=== PATIENT | female | born 1990 | race African-American/Black ===

== ENCOUNTER 2020-01-17 11:10 | Outpatient (REF) | payer OTHER, SELFPAY ==
[2020-01-17 13:27] LABS: CT PCR NOT DETECTED (Not Detect.); NG PCR NOT DETECTED (Not Detect.)
[2020-01-18 08:47] LABS: BV Int Neg Control Negative (Negative); BV Int Pos Control Positive (Positive)
== END 2020-01-17 11:11 | disposition home or self-care (01) ==
LOC: HO.LNP 11:10
PROVIDERS: Visit Provider Nurse Practitioner Family
DX: Z11.3 Encounter for screening for infections with a predominantly sexual mode of transmission (principal); R30.9 Painful micturition, unspecified
CPT/HCPCS: 87480; 87491; 87510; 87591; 87660

== ENCOUNTER 2021-07-29 21:01 | Emergency (ER) | payer OTHER, SELFPAY ==
--- NOTE | ~2021-07-29 | XR_ITS ---
EXAMINATION: XR HAND, RIGHT CLINICAL INFORMATION: Pain COMPARISON: 12/31/2007 TECHNIQUE: PA, lateral, and oblique views of the right hand. FINDINGS: There is a headless screw within the fifth metacarpal. Hardware is intact. There is no fracture or dislocation. Joint spaces are maintained. Alignment maintained. The soft tissues are unremarkable. XR/XR hand RT 2V IMPRESSION: No acute abnormality or significant arthritic changes. Fixation hardware in the fifth metacarpal is intact.
[2021-07-29 23:44] VITALS: BP 128/83; PULSE 80; RESP 14; TEMP 36.9; O2SAT 98; BMI 24.0
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
== END 2021-07-30 01:30 | disposition home or self-care (01) ==
LOC: HO.ED 07-30 01:32
PROVIDERS: Emergency Provider Student in an Organized Health Care Education/Training Program
DX: M79.641 Pain in right hand (principal)
CPT/HCPCS: 29125; 73120; 99282; 99283

== ENCOUNTER 2022-04-30 18:10 | Emergency (ER) | payer OTHER, SELFPAY ==
--- NOTE | ~2022-04-30 | CT_ITS ---
EXAMINATION: CT ABDOMEN AND PELVIS WITHOUT CONTRAST CLINICAL INFORMATION: Nausea vomiting and diarrhea. Abdominal pain. COMPARISON: CT abdomen pelvis 09/24/2012 TECHNIQUE: Multidetector volumetric imaging was performed from the superior aspect of the liver through the pubic symphysis. Sagittal and coronal reformatted images were obtained on the technologist's workstation. This CT examination was performed using dose optimization techniques as appropriate, variously including the following: *Automated exposure control *Adjustment of mA and/or kV according to patient size (this includes techniques or standardized protocols for targeted exams where dose is matched to indication/reason for exam; i.e. extremities or head) *Use of iterative reconstruction technique DLP: 520 mGy-cm FINDINGS: LUNG BASES: Lung bases normally aerated. No pleural effusion. LIVER, GALLBLADDER, AND BILIARY TREE: The liver is normal in size, shape, and attenuation. No focal hepatic lesion or biliary ductal dilatation is present. The gallbladder is unremarkable with no evidence of radiopaque gallstones, gallbladder wall thickening, or obvious pericholecystic inflammatory changes. PANCREAS: Unremarkable. SPLEEN: Unremarkable. ADRENAL GLANDS: Unremarkable. KIDNEYS AND URETERS: The kidneys are normal in size, shape, and attenuation. No hydronephrosis, hydroureter, or calculi seen. No perinephric stranding. BLADDER: Unremarkable. GASTROINTESTINAL TRACT: The small and large bowel are unremarkable. The appendix is unremarkable. ABDOMINAL WALL: No significant hernia is appreciated. LYMPH NODES: Normal. VASCULAR: Unremarkable. PELVIC VISCERA: Unremarkable. OSSEOUS STRUCTURES: Unremarkable. CT/CT abdomen pelvis wo IV con IMPRESSION: No significant abnormality. Fleischner guidelines were followed.
[2022-04-30 18:38] VITALS: BP 115/86; PULSE 64; RESP 18; TEMP 36.9; O2SAT 100; BMI 27.5
--- NOTE | 2022-04-30 18:38 | ED.ABDPAIN ---
HPI - Abdominal Pain General Chief Complaint: Nausea/Vomiting/Diarrhea <MARIA DE JESUS Lewis - Last Filed: 04/30/22 18:42> Stated Complaint: vomit, abd pain <MARIA DE JESUS Lewis - Last Filed: 04/30/22 18:42> Time Seen by Provider: 04/30/22 21:41 <MARIA DE JESUS Lewis - Last Filed: 04/30/22 18:42> Source: patient and RN notes reviewed <Lei Wang - Last Filed: 04/30/22 23:13> Mode of arrival: ambulatory <Lei Wang - Last Filed: 04/30/22 23:13> Limitations: no limitations <Lei Wang - Last Filed: 04/30/22 23:13> History of Present Illness HPI narrative: 31-year-old female with past medical history significant for depression presents for evaluation of nausea, vomiting. Patient reports that she woke up this morning with generalized diffuse abdominal pain is moderate, 5/10. She reports that she has been vomiting all throughout the day. She denies any fevers, chills. The patient did have 2 episodes of nonbloody diarrhea The patient does endorse sick contacts as her family at home had influenza about 1 week ago The patient denies any history of abdominal surgeries <Lei Wang - Last Filed: 04/30/22 23:13> Related Data Home Medications: Home Medications Medication Instructions Recorded Confirmed escitalopram oxalate 10 mg tablet 10 mg PO DAILY 01/17/20 famotidine 20 mg tablet 20 mg PO BEDTIME PRN 01/17/20 hydroxyzine HCl 25 mg tablet 25 mg PO TID 01/17/20 loperamide 2 mg capsule mg PO 01/17/20 Previous Rx's Medication Instructions Recorded fluconazole 150 mg tablet 150 mg PO Q3D 2 doses #2 tabs 01/17/20 (Diflucan) montelukast 10 mg tablet 10 mg PO DAILY 90 days #90 tabs 11/20/20 ondansetron 4 mg disintegrating 4 mg PO Q8H PRN nausea and 04/30/22 tablet vomiting #20 tabs <MARIA DE JESUS Lewis Last Filed: 04/30/22 18:42> Allergies/Adverse Reactions: Allergies Allergy/AdvReac Type Severity Reaction Status Date / Time No Known Allergies Allergy Mild UNKNOWN Verified 04/30/22 18:38 <MARIA DE JESUS Lewis - Last Filed: 04/30/22 18:42> Review of Systems Constitutional: Reports as per HPI, Denies chills and Denies fatigue <Lei Wang - Last Filed: 04/30/22 23:13> Cardiovascular: Denies chest pain and Denies dyspnea <Lei Wang - Last Filed: 04/30/22 23:13> Respiratory: Denies cough and Denies dyspnea <Lei Wang - Last Filed: 04/30/22 23:13> Gastrointestinal: Reports abdominal pain, Denies melena, Denies hematochezia, Denies constipation, Reports diarrhea, Reports nausea and Reports vomiting <Lei Wang - Last Filed: 04/30/22 23:13> Genitourinary: Denies dysuria <Lei Wang - Last Filed: 04/30/22 23:13> Endocrine: Denies fatigue <Lei Wang - Last Filed: 04/30/22 23:13> [facility] Social History Social History: Social History Advance Directives: No Advance Directives Information Provided: No <MARIA DE JESUS Lewis - Last Filed: 04/30/22 18:42> Physical Exam ED Vital Signs: Vital Signs - 24 hr 04/30/22 18:38 04/30/22 21:34 Temperature 98.4 F 97.9 F Pulse Rate 64 45 L Respiratory Rate 18 16 Blood Pressure 115/86 108/36 L Pulse Oximetry 100 99 Oxygen Delivery Method Room Air Room Air BMI result Body Mass Index 27.5 <MARIA DE JESUS Lewis - Last Filed: 04/30/22 18:42> Vital Signs - 24 hr 04/30/22 18:38 04/30/22 21:34 Temperature 98.4 F 97.9 F Pulse Rate 64 45 L Respiratory Rate 18 16 Blood Pressure 115/86 108/36 L Pulse Oximetry 100 99 Oxygen Delivery Method Room Air Room Air BMI result Body Mass Index 27.5 <Lei Wang - Last Filed: 04/30/22 23:13> Const General: healthy appearing, comfortable, no acute distress, alert and awake <Lei OSanty - Last Filed: 04/30/22 23:13> Nutritional Appearance: well nourished <Lei O[place]mouth - Last Filed: 04/30/22 23:13> Orientation/consciousness: patient oriented x3 <Lei O - Last Filed: 04/30/22 23:13> Eyes Eyelids: Yes eyelids normal <Lei - Last Filed: 04/30/22 23:13> Conjunctivae: conjunctivae normal < - Last Filed: 04/30/22 23:13> Sclerae: sclerae normal < - Last Filed: 04/30/22 23:13> Corneas: corneas normal < - Last Filed: 04/30/22 23:13> Pupils: Equal, round and reactive pupils present <Lei O - Last Filed: 04/30/22 23:13> EOM: EOMs intact bilaterally < - Last Filed: 04/30/22 23:13> Resp Effort & Inspection: normal respiratory effort, able to speak in complete sentences, no audible wheezes and not labored <Lei - Last Filed: 04/30/22 23:13> Auscultation: clear to auscultation bilaterally <Lei - Last Filed: 04/30/22 23:13> GI Inspection: Yes normal to inspection and No distended <Lei O - Last Filed: 04/30/22 23:13> Palpation (GI): Soft to palpation and nontender <Lei - Last Filed: 04/30/22 23:13> Auscultation: normoactive bowel sounds <Lei - Last Filed: 04/30/22 23:13> Skin General skin exam: no rashes or lesions noted and elasticity normal <Lei - Last Filed: 04/30/22 23:13> Lesions: no lesions <Lei O - Last Filed: 04/30/22 23:13> Rashes: no rashes <Lei Indiray - Last Filed: 04/30/22 23:13> Neuro General: patient oriented x3 <Lei Wang - Last Filed: 04/30/22 23:13> Cranial nerves: Yes Equal, round and reactive pupils present <Lei Wang - Last Filed: 04/30/22 23:13> Extrem General: Yes full ROM <Lei Wang - Last Filed: 04/30/22 23:13> Course Course Course Narrative: RME-18:40PM 31yoF presenting to the ED with complaints of nausea, vomiting, diffuse abd pain, diarrhea that started today. Patient reports she feels very dehydrated. She has had minimal urine output today. 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 Although no sick contacts that she is aware of. Denies any fevers, chest pain or shortness of breath, constipation or any other symptoms complaints or concerns at this time. Plan: Will obtain labs, UA, UHCG, COVID/RSV/flu swab and a CT scan abdomen pelvis without IV contrast patient will be sent back to the waiting room to be evaluated in the ED. <MARIA DE JESUS Lewis - Last Filed: 04/30/22 18:42> Medical Decision Making Medical Decision Making MDM Narrative: This is a healthy 31-year-old female presenting for evaluation of vomiting, diarrhea. She is actually slightly bradycardic to 52 in my evaluation. She is asymptomatic from this without any dizziness or lightheadedness. She has a regular rhythm on playground monitor. Denies any chest pains or palpitations. This is not appear to be an acute issue. Her labs are significant for a fully elevated BUN to 22. A current of 1.36. Is likely due to her vomiting and diarrhea. Fluids with IV fluids, Zofran. The patient has no tenderness to palpation of the abdomen, and the abdomen is soft nondistended. Hello suspicion for acute appendicitis that she has no right upper quadrant tenderness. She had a CT scan which also refuse this diagnosis. The CT scan did not show any acute abnormalities. The patient likely has a viral gastroenteritis. <Lei Kathleen - Last Filed: 04/30/22 23:13> Differential Diagnosis Acute nausea and vomiting, gastroenteritis, small bowel obstruction, acute appendicitis, cholecystitis, peptic ulcer disease, electrolyte abnormality, viral syndrome <Lei Wang - Last Filed: 04/30/22 23:13> Lab Data Result Diagrams: 04/30/22 19:14 04/30/22 19:14 <MARIA DE JESUS Lewis - Last Filed: 04/30/22 18:42> Labs: Lab Results 04/30/22 04/30/22 04/30/22 Range/Units 19:14 19:14 19:14 WBC 9.4 (4.8-10.8) X10*3/uL RBC 4.10 L (4.20-5.50) X10*6/uL Hgb 13.2 (12.0-16.0) g/dl Hct 39.1 (37.0-47.0) % MCV 95.4 (80.0-98.0) fL MCH 32.2 (27.0-33.0) pg MCHC 33.8 (31.0-35.0) g/dl RDW 11.4 (11.0-16.0) % Plt Count 387 (160-400) X10*3/uL MPV 9.6 (9.4-12.3) fL Immature Gran % (Auto) 0.2 (0.0-0.4) % Neut % (Auto) 70.4 (45-73) % Lymph % (Auto) 19.8 L (20-40) % [place] % (Auto) 8.8 (2-11) % Eos % (Auto) 0.4 (0-4) % Baso % (Auto) 0.4 (0-2) % Lymph # (Auto) 1.9 (1.2-4.9) X10*3/uL [place] # (Auto) 0.8 (0.1-1.2) X10*3/uL Eos # (Auto) 0.0 (0.0-0.4) X10*3/uL Baso # (Auto) 0.0 (0.0-0.2) X10*3/uL Abs Immat Gran (auto) 0.02 (0.00-0.03) X10*3/uL Absolute Neuts (auto) 6.6 (2.0-8.3) x10*3/uL Absolute Nucleated RBC 0.000 (0.0-0.012) X10*3/uL Nucleated RBC % (auto) 0.0 (0.0-0.2) /100WBC PT 12.5 (10.0-13.1) SEC INR 1.1 (0.9-1.1) Sodium 143 (135-145) mmol/L Potassium 4.3 (3.3-5.1) mmol/L Chloride 108 (96-108) mmol/L Carbon Dioxide 27 (22-29) mmol/L Anion Gap 12 (12-20) BUN 22 H (9-16) mg/dL Creatinine 1.36 (0.5-1.4) mg/dL Estim Creat Clear Calc 57.5 Estimated GFR 45 Random Glucose 93 (60-115) mg/dL Calcium 9.5 (8.4-10.2) mg/dL Magnesium 2.3 (1.6-2.6) mg/dL Total Bilirubin 0.9 (0.0-1.0) mg/dL AST 20 (5-31) U/L ALT 9 (0-31) U/L Alkaline Phosphatase 68 (39-117) U/L Total Protein 7.3 (6.5-8.0) g/dL Albumin 4.4 (3.5-5.0) g/dL Lipase 11 (8-78) U/L Beta HCG, Quant mIU/mL Urine Color Urine Appearance Urine pH (5.0-9.0) Ur Specific [place] (1.005-1.025) Urine Protein (Neg-Trace) mg/dL Urine Glucose (UA) (Negative) mg/dL Urine Ketones (Negative) mg/dL Urine Blood (Negative) Urine Nitrite (Negative) Ur Leukocyte Esterase (Negative) Urine RBC (0-2) /HPF Urine WBC (0-5) /HPF Ur Squamous Epith Cells (0-2) /HPF Urine Bacteria (None Seen) Hyaline Casts (0-2) /LPF Influenza Type A (PCR) (Negative) Influenza Type B (PCR) (Negative) RSV RNA Qual (PCR) (Negative) SARS-CoV-2 RNA (RT-PCR) (Negative) 04/30/22 04/30/22 04/30/22 Range/Units 19:14 19:14 21:47 WBC (4.8-10.8) X10*3/uL RBC (4.20-5.50) X10*6/uL Hgb (12.0-16.0) g/dl Hct (37.0-47.0) % MCV (80.0-98.0) fL MCH (27.0-33.0) pg MCHC (31.0-35.0) g/dl RDW (11.0-16.0) % Plt Count (160-400) X10*3/uL MPV (9.4-12.3) fL Immature Gran % (Auto) (0.0-0.4) % Neut % (Auto) (45-73) % Lymph % (Auto) (20-40) % [place] % (Auto) (2-11) % Eos % (Auto) (0-4) % Baso % (Auto) (0-2) % Lymph # (Auto) (1.2-4.9) X10*3/uL [place] # (Auto) (0.1-1.2) X10*3/uL Eos # (Auto) (0.0-0.4) X10*3/uL Baso # (Auto) (0.0-0.2) X10*3/uL Abs Immat Gran (auto) (0.00-0.03) X10*3/uL Absolute Neuts (auto) (2.0-8.3) x10*3/uL Absolute Nucleated RBC (0.0-0.012) X10*3/uL Nucleated RBC % (auto) (0.0-0.2) /100WBC PT (10.0-13.1) SEC INR (0.9-1.1) Sodium (135-145) mmol/L Potassium (3.3-5.1) mmol/L Chloride (96-108) mmol/L Carbon Dioxide (22-29) mmol/L Anion Gap (12-20) BUN (9-16) mg/dL Creatinine (0.5-1.4) mg/dL Estim Creat Clear Calc Estimated GFR Random Glucose (60-115) mg/dL Calcium (8.4-10.2) mg/dL Magnesium (1.6-2.6) mg/dL Total Bilirubin (0.0-1.0) mg/dL AST (5-31) U/L ALT (0-31) U/L Alkaline Phosphatase (39-117) U/L Total Protein (6.5-8.0) g/dL Albumin (3.5-5.0) g/dL Lipase (8-78) U/L Beta HCG, Quant < 2 mIU/mL Urine Color Yellow Urine Appearance Clear Urine pH 5.5 (5.0-9.0) Ur Specific [place] 1.010 (1.005-1.025) Urine Protein Trace (Neg-Trace) mg/dL Urine Glucose (UA) Negative (Negative) mg/dL Urine Ketones Negative (Negative) mg/dL Urine Blood Negative (Negative) Urine Nitrite Negative (Negative) Ur Leukocyte Esterase Trace H (Negative) Urine RBC 0-2 (0-2) /HPF Urine WBC 0-5 (0-5) /HPF Ur Squamous Epith Cells 3-5 (0-2) /HPF Urine Bacteria Trace (None Seen) Hyaline Casts 0-2 (0-2) /LPF Influenza Type A (PCR) NEGATIVE (Negative) Influenza Type B (PCR) NEGATIVE (Negative) RSV RNA Qual (PCR) NEGATIVE (Negative) SARS-CoV-2 RNA (RT-PCR) NEGATIVE (Negative) <MARIA DE JESUS Lewis - Last Filed: 04/30/22 18:42> Lab Results 04/30/22 04/30/22 04/30/22 Range/Units 19:14 19:14 19:14 WBC 9.4 (4.8-10.8) X10*3/uL RBC 4.10 L (4.20-5.50) X10*6/uL Hgb 13.2 (12.0-16.0) g/dl Hct 39.1 (37.0-47.0) % MCV 95.4 (80.0-98.0) fL MCH 32.2 (27.0-33.0) pg MCHC 33.8 (31.0-35.0) g/dl RDW 11.4 (11.0-16.0) % Plt Count 387 (160-400) X10*3/uL MPV 9.6 (9.4-12.3) fL Immature Gran % (Auto) 0.2 (0.0-0.4) % Neut % (Auto) 70.4 (45-73) % Lymph % (Auto) 19.8 L (20-40) % [place] % (Auto) 8.8 (2-11) % Eos % (Auto) 0.4 (0-4) % Baso % (Auto) 0.4 (0-2) % Lymph # (Auto) 1.9 (1.2-4.9) X10*3/uL [place] # (Auto) 0.8 (0.1-1.2) X10*3/uL Eos # (Auto) 0.0 (0.0-0.4) X10*3/uL Baso # (Auto) 0.0 (0.0-0.2) X10*3/uL Abs Immat Gran (auto) 0.02 (0.00-0.03) X10*3/uL Absolute Neuts (auto) 6.6 (2.0-8.3) x10*3/uL Absolute Nucleated RBC 0.000 (0.0-0.012) X10*3/uL Nucleated RBC % (auto) 0.0 (0.0-0.2) /100WBC PT 12.5 (10.0-13.1) SEC INR 1.1 (0.9-1.1) Sodium 143 (135-145) mmol/L Potassium 4.3 (3.3-5.1) mmol/L Chloride 108 (96-108) mmol/L Carbon Dioxide 27 (22-29) mmol/L Anion Gap 12 (12-20) BUN 22 H (9-16) mg/dL Creatinine 1.36 (0.5-1.4) mg/dL Estim Creat Clear Calc 57.5 Estimated GFR 45 Random Glucose 93 (60-115) mg/dL Calcium 9.5 (8.4-10.2) mg/dL Magnesium 2.3 (1.6-2.6) mg/dL Total Bilirubin 0.9 (0.0-1.0) mg/dL AST 20 (5-31) U/L ALT 9 (0-31) U/L Alkaline Phosphatase 68 (39-117) U/L Total Protein 7.3 (6.5-8.0) g/dL Albumin 4.4 (3.5-5.0) g/dL Lipase 11 (8-78) U/L Beta HCG, Quant mIU/mL Urine Color Urine Appearance Urine pH (5.0-9.0) Ur Specific [place] (1.005-1.025) Urine Protein (Neg-Trace) mg/dL Urine Glucose (UA) (Negative) mg/dL Urine Ketones (Negative) mg/dL Urine Blood (Negative) Urine Nitrite (Negative) Ur Leukocyte Esterase (Negative) Urine RBC (0-2) /HPF Urine WBC (0-5) /HPF Ur Squamous Epith Cells (0-2) /HPF Urine Bacteria (None Seen) Hyaline Casts (0-2) /LPF Influenza Type A (PCR) (Negative) Influenza Type B (PCR) (Negative) RSV RNA Qual (PCR) (Negative) SARS-CoV-2 RNA (RT-PCR) (Negative) 04/30/22 04/30/22 04/30/22 Range/Units 19:14 19:14 21:47 WBC (4.8-10.8) X10*3/uL RBC (4.20-5.50) X10*6/uL Hgb (12.0-16.0) g/dl Hct (37.0-47.0) % MCV (80.0-98.0) fL MCH (27.0-33.0) pg MCHC (31.0-35.0) g/dl RDW (11.0-16.0) % Plt Count (160-400) X10*3/uL MPV (9.4-12.3) fL Immature Gran % (Auto) (0.0-0.4) % Neut % (Auto) (45-73) % Lymph % (Auto) (20-40) % [place] % (Auto) (2-11) % Eos % (Auto) (0-4) % Baso % (Auto) (0-2) % Lymph # (Auto) (1.2-4.9) X10*3/uL [place] # (Auto) (0.1-1.2) X10*3/uL Eos # (Auto) (0.0-0.4) X10*3/uL Baso # (Auto) (0.0-0.2) X10*3/uL Abs Immat Gran (auto) (0.00-0.03) X10*3/uL Absolute Neuts (auto) (2.0-8.3) x10*3/uL Absolute Nucleated RBC (0.0-0.012) X10*3/uL Nucleated RBC % (auto) (0.0-0.2) /100WBC PT (10.0-13.1) SEC INR (0.9-1.1) Sodium (135-145) mmol/L Potassium (3.3-5.1) mmol/L Chloride (96-108) mmol/L Carbon Dioxide (22-29) mmol/L Anion Gap (12-20) BUN (9-16) mg/dL Creatinine (0.5-1.4) mg/dL Estim Creat Clear Calc Estimated GFR Random Glucose (60-115) mg/dL Calcium (8.4-10.2) mg/dL Magnesium (1.6-2.6) mg/dL Total Bilirubin (0.0-1.0) mg/dL AST (5-31) U/L ALT (0-31) U/L Alkaline Phosphatase (39-117) U/L Total Protein (6.5-8.0) g/dL Albumin (3.5-5.0) g/dL Lipase (8-78) U/L Beta HCG, Quant < 2 mIU/mL Urine Color Yellow Urine Appearance Clear Urine pH 5.5 (5.0-9.0) Ur Specific [place] 1.010 (1.005-1.025) Urine Protein Trace (Neg-Trace) mg/dL Urine Glucose (UA) Negative (Negative) mg/dL Urine Ketones Negative (Negative) mg/dL Urine Blood Negative (Negative) Urine Nitrite Negative (Negative) Ur Leukocyte Esterase Trace H (Negative) Urine RBC 0-2 (0-2) /HPF Urine WBC 0-5 (0-5) /HPF Ur Squamous Epith Cells 3-5 (0-2) /HPF Urine Bacteria Trace (None Seen) Hyaline Casts 0-2 (0-2) /LPF Influenza Type A (PCR) NEGATIVE (Negative) Influenza Type B (PCR) NEGATIVE (Negative) RSV RNA Qual (PCR) NEGATIVE (Negative) SARS-CoV-2 RNA (RT-PCR) NEGATIVE (Negative) <Lei Wang - Last Filed: 04/30/22 23:13> Medications Administered Discontinued Medications Generic Name Dose Route Start Last Admin Trade Name Freq PRN Reason Stop Dose Admin Sodium Chloride 1,000 mls @ 999 mls/hr 04/30/22 22:00 04/30/22 21:59 Ns IV 04/30/22 23:00 999 mls/hr .Q1H1M LAURA Administration Ondansetron HCl 4 mg 04/30/22 21:51 04/30/22 21:59 Ondansetron Hcl 4 Mg/2 Ml Vial IVPUSH 04/30/22 21:52 4 mg ONCE ONE Administration <MARIA DE JESUS Lewis - Last Filed: 04/30/22 18:42> Medications Administered Discontinued Medications Generic Name Dose Route Start Last Admin Trade Name Freq PRN Reason Stop Dose Admin Sodium Chloride 1,000 mls @ 999 mls/hr 04/30/22 22:00 04/30/22 21:59 Ns IV 04/30/22 23:00 999 mls/hr .Q1H1M LAURA Administration Ondansetron HCl 4 mg 04/30/22 21:51 04/30/22 21:59 Ondansetron Hcl 4 Mg/2 Ml Vial IVPUSH 04/30/22 21:52 4 mg ONCE ONE Administration <Lei Wang - Last Filed: 04/30/22 23:13> Discharge Plan Discharge Clinical Impression: Acute nausea with nonbilious vomiting <MARIA DE JESUS Lewis - Last Filed: 04/30/22 18:42> Patient Disposition: Home, Self-Care <MARIA DE JESUS Lewis - Last Filed: 04/30/22 18:42> Instructions: Acute Nausea and Vomiting (ED) <MARIA DE JESUS Lewis - Last Filed: 04/30/22 18:42> Additional Instructions: Take ondansetron for any further nausea and vomiting. Drink lots of fluids, small sips at a time Your blood tests were reassuring today although did show your slightly dehydrated and UA given IV fluids. Your CT scan did not show any concerning abnormalities <MARIA DE JESUS Lewis - Last Filed: 04/30/22 18:42> Prescriptions: New ondansetron 4 mg tablet,disintegrating 4 mg PO Q8H PRN (Reason: nausea and vomiting) Qty: 20 0RF No Action montelukast 10 mg tablet 10 mg PO DAILY 90 Days Qty: 90 0RF hydroxyzine HCl 25 mg tablet 25 mg PO TID escitalopram oxalate 10 mg tablet 10 mg PO DAILY famotidine 20 mg tablet 20 mg PO BEDTIME PRN loperamide 2 mg capsule PO fluconazole [Diflucan] 150 mg tablet 150 mg PO Q3D Qty: 2 0RF <MARIA DE JESUS Lewis - Last Filed: 04/30/22 18:42> Stand Alone Forms: Work/School Release <MARIA DE JESUS Lewis - Last Filed: 04/30/22 18:42>
[2022-04-30 19:19] LABS: MANUAL DIFF FLAG NO
[2022-04-30 19:20] LABS: Basophils Percent Auto 0.4 % (0-2); Eosinophils Percent Auto 0.4 % (0-4); Hematocrit 39.1 % (37.0-47.0); Hemoglobin 13.2 g/dl (12.0-16.0); Imm Gran Abs Auto 0.02 X10*3/uL (0.00-0.03); Imm Gran Pct Auto 0.2 % (0.0-0.4); Lymphocytes Absolute Auto 1.9 X10*3/uL (1.2-4.9); Lymphocytes Percent Auto 19.8 % (20-40); Mean Corpuscular HGB Conc 33.8 g/dl (31.0-35.0); Mean Corpuscular Hemoglobin 32.2 pg (27.0-33.0); Mean Corpuscular Volume 95.4 fL (80.0-98.0); Mean Platelet Volume 9.6 fL (9.4-12.3); Monocytes Absolute Auto 0.8 X10*3/uL (0.1-1.2); Monocytes Percent Auto 8.8 % (2-11); Neutrophils Absolute Auto 6.6 x10*3/uL (2.0-8.3); Neutrophils Percent Auto 70.4 % (45-73); Platelet Count 387 X10*3/uL (160-400); Red Cell Distribution Width 11.4 % (11.0-16.0); White Blood Count 9.4 X10*3/uL (4.8-10.8)
[2022-04-30 19:25] LABS: INTERNATIONAL NORM RATIO 1.1 (0.9-1.1); Prothrombin Time 12.5 SEC (10.0-13.1)
[2022-04-30 19:38] LABS: Alanine Aminotransferase 9 U/L (0-31); Albumin Level 4.4 g/dL (3.5-5.0); Alkaline Phosphatase 68 U/L (39-117); Anion Gap 12 (12-20); Aspartate Amino Transferase 20 U/L (5-31); Bilirubin Total 0.9 mg/dL (0.0-1.0); Blood Urea Nitrogen 22 mg/dL (9-16); Calcium 9.5 mg/dL (8.4-10.2); Carbon Dioxide 27 mmol/L (22-29); Chloride 108 mmol/L (96-108); Creatinine Clr Calc Pharmacy 57.5; Estimated Glomerular Filt Rate 45; Glucose Random 93 mg/dL (60-115); Lipase 11 U/L (8-78); Magnesium 2.3 mg/dL (1.6-2.6); Potassium 4.3 mmol/L (3.3-5.1); Sodium 143 mmol/L (135-145); Total Protein 7.3 g/dL (6.5-8.0)
[2022-04-30 19:45] LABS: HCG Quantitative < 2 mIU/mL
[2022-04-30 20:01] LABS: Influenza A PCR NEGATIVE (Negative); Influenza B PCR NEGATIVE (Negative); Resp Syncy Virus RNA Qual PCR NEGATIVE (Negative); SARS COV2 PCR INHOUSE NEGATIVE (Negative)
[2022-04-30 21:34] VITALS: BP 108/36; PULSE 45; RESP 16; TEMP 36.6; O2SAT 99
[2022-04-30 21:53] LABS: Appearance Urine Clear; Color Urine Yellow; Glucose Urine UA Negative (Negative); Leukocyte Esterase Urine Trace (Negative); Nitrite Urine Negative (Negative); PH 5.5 (5.0-9.0); UMIC TRIGGER UACC YES; Urine Blood Negative (Negative); Urine Ketones Negative (Negative); Urine Protein Trace mg/dL (Neg-Trace)
[2022-04-30] MEDS: ondansetron HCL 4 MG/2 ML VIAL IVPUSH (21:59)
[2022-04-30] MEDS: 0.9 % Sodium Chloride 1,000 ML 999 ML IV (21:59)
[2022-04-30 22:27] LABS: Bacteria Urine Trace (None Seen); Hyaline Casts Urine 0-2 /LPF (0-2); RBC Urine 0-2 /HPF (0-2); WBC Urine 0-5 /HPF (0-5)
== END 2022-04-30 23:31 | disposition home or self-care (01) ==
PROVIDERS: Physician Assistant Medical; Emergency Provider Emergency Medicine
DX: R11.2 Nausea with vomiting, unspecified (principal); R10.9 Unspecified abdominal pain; Z20.822 Contact with and (suspected) exposure to COVID-19; Z20.828 Contact with and (suspected) exposure to other viral communicable diseases; Z79.899 Other long term (current) drug therapy
CPT/HCPCS: 0241U; 36415; 74176; 80053; 81001; 81003; 83690; 83735; 84702; 85025; 85610; 96374; 99283; 99284; J2405

== ENCOUNTER 2022-05-16 11:57 | Emergency (ER) | payer OTHER, SELFPAY ==
[2022-05-16 11:59] VITALS: BP 104/69; PULSE 91; RESP 19; TEMP 38.3; O2SAT 100; BMI 27.6
--- NOTE | 2022-05-16 12:06 | ED_ITS ---
HPI - General Adult General Chief complaint: General Medical Stated complaint: low heart rate body aches headache weak Time Seen by Provider: 05/16/22 12:27 Source: patient Mode of arrival: ambulatory Limitations: no limitations and language barrier History of Present Illness HPI narrative: Patient is a 31-year-old female who presents emergency department for evaluation of body aches, headache, sore throat, fever, chills. Symptom onset was yesterday, progressively worsening. Reports pain with swallowing, and associated nausea. Denies any possibility of reports a history of a tubal ligation. Son has been ill with similar symptoms earlier this week Related Data Home Medications Medication Instructions Recorded Confirmed escitalopram oxalate 10 mg tablet 10 mg PO DAILY 01/17/20 famotidine 20 mg tablet 20 mg PO BEDTIME PRN 01/17/20 hydroxyzine HCl 25 mg tablet 25 mg PO TID 01/17/20 loperamide 2 mg capsule mg PO 01/17/20 Previous Rx's Medication Instructions Recorded fluconazole 150 mg tablet 150 mg PO Q3D 2 doses #2 tabs 01/17/20 (Diflucan) montelukast 10 mg tablet 10 mg PO DAILY 90 days #90 tabs 11/20/20 ondansetron 4 mg disintegrating 4 mg PO Q8H PRN nausea and 04/30/22 tablet vomiting #20 tabs penicillin V potassium 500 mg 500 mg PO BID 10 days #20 tabs 05/16/22 tablet Allergies Allergy/AdvReac Type Severity Reaction Status Date / Time No Known Allergies Allergy Mild UNKNOWN Verified 04/30/22 18:38 Review of Systems Review of Systems: Yes all other systems are reviewed and are negative PMFSH Past Medical History Attestation statement: The following information was validated with the patient. Source: old records reviewed Social History Social History Advance Directives: No Advance Directives Information Provided: No Physical Exam ED Vital Signs: Vital Signs - 24 hr 05/16/22 11:59 Temperature 101.0 F H Pulse Rate 91 Respiratory Rate 19 Blood Pressure 104/69 Pulse Oximetry 100 Oxygen Delivery Method Room Air BMI result Body Mass Index 27.6 Appearance: Alert.?Oriented to person, place and time. No acute distress.?Normal affect. Eyes: Pupils equal, round and reactive to light.? ENT: Pharynx erythematous with 2+ hypertrophy bilaterally and white exudate,, uvula midline, no trismus, no drooling Neck: Normal inspection.? Neck supple.??No cervical lymphadenopathy. No nuchal rigidity. CVS: Heart sounds normal. Normal heart rate and rhythm.? Pulses normal.?? Respiratory: No respiratory distress.? Lung sounds clear to auscultation bilaterally?? Abdomen: Soft and non-tender. Normoactive bowel sounds. Skin: Skin warm and dry.? Normal skin color.? Extremities: No lower extremity edema.? Neuro: Moves all extremities spontaneously. Sensation intact bilaterally. No focal neuro deficits. Ambulates with normal steady gait. Medications Administered Discontinued Medications Generic Name Dose Route Start Last Admin Trade Name Freq PRN Reason Stop Dose Admin Acetaminophen 650 mg 05/16/22 12:05 05/16/22 12:10 Acetaminophen 325 Mg Tablet PO 05/16/22 12:06 650 mg ONCE ONE Administration Ibuprofen 600 mg 05/16/22 12:05 05/16/22 12:10 Ibuprofen 600 Mg Tablet PO 05/16/22 12:06 600 mg ONCE ONE Administration Ondansetron HCl 4 mg 05/16/22 12:05 05/16/22 12:10 Ondansetron Odt 4 Mg Tab.Rapdis TRANSLINGU 05/16/22 12:06 4 mg ONCE ONE Administration Medical Decision Making Medical Decision Making [facility] Narrative: Patient is a 31-year-old female with no reported past medical history presenting to the emergency department for evaluation of viral type symptoms; headache, body aches, fever, and sore throat. Physical examination consistent pharyngit is, strep a testing is positive today. Examination is not consistent with peritonsillar retropharyngeal abscess. COVID-19 and influenza testing are negative. Discussed plan of care for discharge home, prescription for penicillin sent to patient's pharmacy. Overall she is well appearing, tolerating oral intake. Differential Diagnosis Differential Diagnoses: The differential diagnosis associated with the presentation includes (As noted above) Lab Data [facility] Lab Attestation statement: I reviewed the patient's lab results. Labs: Lab Results 05/16/22 05/16/22 05/16/22 Range/Units 12:07 12:07 12:07 COVID-19 (CARON) Negative (Negative) COVID-19 Clin Com See Note Influenza Type A (JOSE ALFREDO) Negative (Negative) Influenza Type B (JOSE ALFREDO) Negative (Negative) Influenza A & B Note See Note S. pyogenes GrpA JOSE ALFREDO Positive A (Negative) Independent Historian Clinical information obtained from an independent historian. History obtained from or confirmed by: Spouse Prescription Management I considered prescription management with: Antibiotic Discharge Plan Discharge Clinical Impression: Acute streptococcal pharyngitis Patient Disposition: Home, Self-Care Instructions: Strep Throat (ED) Additional Instructions: Testing today for COVID and flu were negative. You did test positive for strep throat. Prescription for antibiotic was sent to your pharmacy, please complete this entire course. If you are taking any oral control pills, you will need to use additional means of contraception such as condoms while taking antibiotics and for 1 week after. You can take ibuprofen 200 mg, 3 tablets (600mg) every 6-8 hours as needed for pain, in addition to Tylenol 500 mg, 2 tablets (1,000mg) every 4-6 hours as needed for pain, but not to exceed 3 doses daily (3,000mg).? Please be sure to rest over the next few days, stay well hydrated, Chloraseptic throat spray/throat lozenges may also be helpful for symptoms as well. You may return back to emergency department any new or worsening symptoms or concerns. Follow-up with your primary care provider Prescriptions: New penicillin V potassium 500 mg tablet 500 mg PO BID 10 Days Qty: 20 0RF No Action montelukast 10 mg tablet 10 mg PO DAILY 90 Days Qty: 90 0RF ondansetron 4 mg tablet,disintegrating 4 mg PO Q8H PRN (Reason: nausea and vomiting) Qty: 20 0RF hydroxyzine HCl 25 mg tablet 25 mg PO TID escitalopram oxalate 10 mg tablet 10 mg PO DAILY famotidine 20 mg tablet 20 mg PO BEDTIME PRN loperamide 2 mg capsule PO fluconazole [Diflucan] 150 mg tablet 150 mg PO Q3D Qty: 2 0RF Referrals: Cheyenne Cazares MD [Primary Care Provider] -
[2022-05-16] MEDS: Acetaminophen 325 MG TABLET 650 MG PO (12:10)
[2022-05-16] MEDS: Ondansetron ODT 4 MG TAB.RAPDIS TRANSLINGU (12:10)
[2022-05-16] MEDS: Ibuprofen 600 MG TABLET PO (12:10)
[2022-05-16 12:16] LABS: IDNOW Serial# 6674DD1D; Strep A Nucleic Acid Positive (Negative)
[2022-05-16 12:25] LABS: COVID-19 Test Negative (Negative); IDNOW Serial# 16C4AD1C
[2022-05-16 12:31] LABS: IDNOW Serial# BCCEAD1C; Influenza A Negative (Negative); Influenza B2 Negative (Negative)
== END 2022-05-16 13:31 | disposition home or self-care (01) ==
PROVIDERS: Nurse Practitioner Family; Emergency Provider Emergency Medicine; PCP Internal Medicine
DX: J02.0 Streptococcal pharyngitis (principal); Z20.822 Contact with and (suspected) exposure to COVID-19
CPT/HCPCS: 87502; 87635; 87651; 99283

== ENCOUNTER → 2022-06-03 09:54 | Outpatient (BNVA) | payer SELFPAY | PROVIDERS: PCP Internal Medicine; Visit Provider Physician Assistant Medical | DX: Z02.1 Encounter for pre-employment examination (principal) ==

== ENCOUNTER 2022-12-14 11:34 | Emergency (ER) | payer OTHER, SELFPAY ==
--- NOTE | ~2022-12-14 | XR_ITS ---
EXAMINATION: XR HAND, LEFT CLINICAL INFORMATION: Status post fall. Pain. COMPARISON: None available. TECHNIQUE: PA, lateral, and oblique views of the left hand. FINDINGS: There is a nondisplaced oblique incomplete fracture proximal and distal fifth metacarpal. Rest the visualized left hand is unremarkable. Joint spaces are normal. Minimal soft tissue swelling around the fifth metacarpal. XR/XR hand LT min 3V IMPRESSION: Nondisplaced oblique fracture proximal and distal fifth metacarpal. There is minimal soft tissue swelling.
[2022-12-14 12:58] VITALS: BP 121/67; PULSE 63; RESP 18; TEMP 36.5; O2SAT 98; BMI 30.4
--- NOTE | 2022-12-14 13:02 | ED_ITS ---
HPI - General Adult General Chief complaint: Extremity Injury, Upper Stated complaint: L hand pinky inj Time Seen by Provider: 12/14/22 13:29 Source: patient Mode of arrival: ambulatory Limitations: no limitations History of Present Illness HPI narrative: Patient is a 32 year old assigned female at with no reported medical history presenting to the emergency department today with left hand pain. Patient states that early this morning she tripped and fell down her stairs landing on her left hand. Patient denies any head strike, loss of consciousness, dizziness, lightheadedness, abdominal pain, nausea, vomiting, fever, chills, blurry vision, double vision, loss of vision, chest pain, difficulty breathing, shortness of breath, back pain, night sweats, pain with urination, increased urinary frequency, increased urinary urgency, blood in her urine or stool, syncope or a near syncopal episode, bowel incontinence, bladder incontinence, bowel retention, bladder retention, or any other complaints at this time. Onset (ago): hour(s) Location: left and upper extremity Radiation: non-radiation Severity: mild Severity scale (1-10): 3 Quality: aching and dull Pain Consistency: constant Relieving factors: immobilization Exacerbating factors: movement Associated symptoms: denies other symptoms Treatments prior to arrival: none Related Data Home Medications Medication Instructions Recorded Confirmed escitalopram oxalate 10 mg tablet 10 mg PO DAILY 01/17/20 famotidine 20 mg tablet 20 mg PO BEDTIME PRN 01/17/20 hydroxyzine HCl 25 mg tablet 25 mg PO TID 01/17/20 loperamide 2 mg capsule mg PO 01/17/20 Previous Rx's Medication Instructions Recorded fluconazole 150 mg tablet 150 mg PO Q3D 2 doses #2 tabs 01/17/20 (Diflucan) montelukast 10 mg tablet 10 mg PO DAILY 90 days #90 tabs 11/20/20 ondansetron 4 mg disintegrating 4 mg PO Q8H PRN nausea and 04/30/22 tablet vomiting #20 tabs penicillin V potassium 500 mg 500 mg PO BID 10 days #20 tabs 05/16/22 tablet Allergies Allergy/AdvReac Type Severity Reaction Status Date / Time No Known Allergies Allergy Mild UNKNOWN Verified 04/30/22 18:38 Review of Systems Constitutional: Constitutional: Reports no additional constitutional complaints, Denies chills, Denies fever(s) and Denies night sweats Eyes: Eyes: Reports no additional eye complaints, Denies blurry vision, Denies change in vision, Denies diplopia, Denies eye discharge, Denies loss of vision and Denies eye pain ENT: Denies dizziness Cardiovascular: Cardiovascular: Reports no additional cardiovascular complaints, Denies chest pain, Denies lightheadedness, Denies Loss of Consciousness and Denies dyspnea Respiratory: Respiratory: Reports no additional respiratory complaints and Denies dyspnea Gastrointestinal: Gastrointestinal: Reports no additional gastrointestinal complaints, Denies abdominal pain, Denies melena, Denies hematochezia, Denies change in bowel habits and Denies change in stool character Genitourinary: Genitourinary: Denies hematuria, Denies urinary frequency, Denies dysuria, Denies urinary incontinence, Denies urinary hesitancy and Denies urinary urgency Musculoskeletal: Musculoskeletal: Reports no additional musculoskeletal complaints, Denies numbness and Denies tingling Comments: left hand pain Neurologic: Denies dizziness, Denies loss of vision, Denies numbness and Denies tingling Psychiatric: Psychiatric: Reports no additional psychiatric complaints Endocrine: Endocrine: Reports no additional endocrine complaints Hematologic/Lymphatic: Hematologic/Lymphatic: Reports no additional hematologic/lymphatic complaints Allergic/Immunologic: Allergic/Immunologic: Reports no additional allergic/immunologic complaints PMFSH Past Medical History Attestation statement: The following information was validated with the patient. Source: old records reviewed and nursing notes reviewed Medical History Vaginal discharge Social History Social History Advance Directives: No Physical Exam ED Vital Signs: Vital Signs - 24 hr 12/14/22 12:58 Temperature 97.7 F Pulse Rate 63 Respiratory Rate 18 Blood Pressure 121/67 Pulse Oximetry 98 Oxygen Delivery Method Room Air BMI result Body Mass Index 30.4 Const General: cooperative, no acute distress, alert and awake Nutritional Appearance: well nourished Orientation/consciousness: patient oriented x3 Limitations: no limitations HENMT Head: Yes normal to inspection and Yes atraumatic Ears: hearing grossly normal bilaterally and external ears normal General nose exam: Normal external nose present, no nasal discharge noted and no epistaxis Face and sinus: Yes normal facial exam, No abrasion and No laceration Mouth: Normal oral and palatal mucosa present, no drooling and no muffled voice Eyes General: appearance normal, both eyes and all related structures Periorbital: periorbital findings normal Eyelids: Yes eyelids normal Conjunctivae: conjunctivae normal Pupils: Equal, round and reactive pupils present EOM: EOMs intact bilaterally Neck Neck: Yes normal visual inspection, Yes full ROM and Yes no lymphadenopathy Chest Chest palpation & inspection: normal inspection of the chest Resp Effort & Inspection: normal respiratory effort and able to speak in complete sentences GI Inspection: Yes normal to inspection Neuro General: patient oriented x3 and moves all extremities Cranial nerves: Yes Equal, round and reactive pupils present Cognition (Neuro): normal cognition Motor exam (neuro): 5/5 motor strength present throughout Sensory Exam: Normal double simultaneous stimulation for sensation Coordination: [id number] test normal Extrem Other: left hand pain with palpation over the 5th metacarpal General: Yes normal to inspection, Yes full ROM and Yes capillary refill normal Psych Appearance: grossly normal Mental Status: mental status grossly normal Affect: normal affect Attitude: cooperative Thought process: Normal thought process present Thought content: Normal thought content present Insight: Good insight present (Psych) Course Course Course Narrative: This is an RME: Additional HPI, ROS, PE not included below will be deferred to primary provider. This is a [id number] presenting to the emergency department with a complaint of left hand pain s/p trip and fall which occurred at 3:00AM this morning. Pt states that she tripped on shoes on the steps, and punched the ground with her left hand. Reporting 10/10 pain. TTP over the left metacarpals and left fifth digit. Good radial pulse. No snuff box tenderness. No wrist tenderness. Took Ibuprofen at 3:40AM this morning. Plan: xr hand ordered Procedures Orthopedic Splinting/Casting Injury #1: Side: left Upper Extremity Injury Location: hand Upper Extremity Immobilizer: sling/shoulder immobilizer and ulnar gutter Medical Decision Making Medical Decision Making MDM Narrative: Patient is a 32 year old assigned female at with no reported medical history presenting to the emergency department today with left hand pain. Patient's physical exam was as noted in the physical exam portion of this note. Patient's left hand x-ray showed a nondisplaced oblique fracture of the proximal and distal 5th metacarpal. I explained my physical exam findings as well as all test results to the patient. I answered all questions asked by the patient. Patient's left hand was placed in an ulnar gutter splint, without incident. Patient's PMS were in tact prior to and after splint placement. Patient's left hand was placed in a sling. I stressed the importance of the patient taking her medication as prescribed. I stressed the importance of the patient following up with her primary care provider and an orthopedic provider. I stressed the importance of the patient returning to the emergency department immediately if her symptoms were to worsen or if she were to develop any dizziness, shortness of breath, difficulty breathing, chest pain, blurry vision, loss of vision, nausea, vomiting, abdominal pain, fever, chills, back pain, or any other complaints. Patient verbalized agreement and understanding with this treatment plan and discharge. Differential Diagnosis Differential Diagnoses: The differential diagnosis associated with the presentation includes Left 5th metacarpal fracture Left hand injury Left hand pain Trip and fall Independent Interpretation I performed an independent interpretation of an: Plain X-Ray Interpretation: My interpretation is in agreement with the radiologist's impression of this imaging study. EXAMINATION: XR HAND, LEFT CLINICAL INFORMATION: Status post fall. Pain. COMPARISON: None available. TECHNIQUE: PA, lateral, and oblique views of the left hand. FINDINGS: There is a nondisplaced oblique incomplete fracture proximal and distal fifth metacarpal. Rest the visualized left hand is unremarkable. Joint spaces are normal. Minimal soft tissue swelling around the fifth metacarpal. XR/XR hand LT min 3V IMPRESSION: Nondisplaced oblique fracture proximal and distal fifth metacarpal. There is minimal soft tissue swelling. Dictated By: Ho Scruggs MD Signed By: Electronically signed by Ho Scruggs MD 12/14/22 7835 Radiology Impression Discussion of test interpretation with radiology: I have reviewed the radiologist's reading. Discharge Plan Discharge Clinical Impression: Fracture of metacarpal Patient Disposition: Home, Self-Care Instructions: Hand Fracture (ED) Additional Instructions: Follow up with your primary care provider and an orthopedic provider. Return to the emergency department immediately if your symptoms worsen or if you develop any dizziness, shortness of breath, difficulty breathing, chest pain, blurry vision, loss of vision, nausea, vomiting, abdominal pain, fever, chills, back pain, or any other complaints. Prescriptions: No Action montelukast 10 mg tablet 10 mg PO DAILY 90 Days Qty: 90 0RF penicillin V potassium 500 mg tablet 500 mg PO BID 10 Days Qty: 20 0RF ondansetron 4 mg tablet,disintegrating 4 mg PO Q8H PRN (Reason: nausea and vomiting) Qty: 20 0RF hydroxyzine HCl 25 mg tablet 25 mg PO TID escitalopram oxalate 10 mg tablet 10 mg PO DAILY famotidine 20 mg tablet 20 mg PO BEDTIME PRN loperamide 2 mg capsule PO fluconazole [Diflucan] 150 mg tablet 150 mg PO Q3D Qty: 2 0RF Referrals: [facility] [place] [facility] [Provider Group] (Call to establish and follow up with an orthopedic provider) Cheyenne Cazares MD [Primary Care Provider] - Print Language: Lao
== END 2022-12-14 14:28 | disposition home or self-care (01) ==
PROVIDERS: Emergency Provider Emergency Medicine; PCP Internal Medicine
DX: S62.617A Displaced fracture of proximal phalanx of left little finger, initial encounter for closed fracture (principal); M79.642 Pain in left hand; W10.9XXA Fall (on) (from) unspecified stairs and steps, initial encounter; Y93.9 Activity, unspecified; Y92.9 Unspecified place or not applicable; Y99.9 Unspecified external cause status; Z79.899 Other long term (current) drug therapy
CPT/HCPCS: 29130; 73130; 99283; 99284

== ENCOUNTER 2022-12-23 12:44 | Outpatient (AMB) | payer OTHER, SELFPAY ==
--- NOTE | 2022-12-23 12:55 | MHC.OFFVIS ---
Intake Intake Visit Reasons: [employer]-Fracture of metacarpal-LT hand/Pinky Intake Note: fell on shoes that were left on stairs. ED placed in splint. CUrrenlty Tylenol with no relief. pain on her right shoulder. numbness and tinglinng into wrist area. 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 She states she has pain in her left hand and rates the pain as 10 on the scale of 0-10. She also c/o numbness and tingling in her left wrist. She finds no relief with Tylenol. 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 Review of Systems Const All systems reviewed & are unremarkable except as noted in HPI and below Physical Exam Const General: cooperative, healthy appearing, comfortable, no acute distress, well developed and alert Orientation/consciousness: patient oriented x3 HEENT Head: Yes normal to inspection, Yes normocephalic and Yes atraumatic Eyes General: appearance normal, both eyes and all related structures Resp Effort & Inspection: normal respiratory effort and able to speak in complete sentences Cardio Rate: regular rate Peripheral pulses: Peripheral pulses 2+ throughout GI Palpation (GI): Soft to palpation Skin Lesions: no lesions Rashes: no rashes Neuro General: patient oriented x3 Extrem Other: Left hand: Normal to inspection. She does have some swelling along the dorsum of hand specifically around the base of the 5th metacarpal with some tenderness over the fracture. There is no scissoring or crossing of the digit. NVI. Office Procedures Casting/Splints 63855-Kpgx/Wrist Cast Application Procedure code (CPT) selection complete Fracture Care Fracture Billing Code: Fracture Billing Code Results Reviewed Results Reviewed: Xrays were obtained in the office today and personally reviewed by me of the left hand show Nondisplaced oblique fracture proximal and distal fifth metacarpal. Assessment & Plan Assessment & Plan (1) Fracture of fifth metacarpal bone: Code(s): S62.308A - Unspecified fracture of other metacarpal bone, initial encounter for closed fracture Qualifiers: Encounter type: initial encounter Fracture type: closed Metacarpal location: shaft Fracture alignment: nondisplaced Laterality: left Qualified Code(s): S62.357A - Nondisplaced fracture of shaft of fifth metacarpal bone, left hand, initial encounter for closed fracture Plan She was placed in an ulnar gutter cast that she will wear to help stabilize and immobilize the fracture. At this time there is no need for surgical intervention if this will remain stable to check alignment. I would like to see her back in 1 week with x-rays through the cast to check alignment. She will avoid any type of lifting, pushing, pulling or carrying greater than a cellphone. She is content with this plan. Orders: Orders XR hand LT min 3V Today M79.642 - Pain in left hand Patient Instructions: Scribed for Jesús Landis PA-C, by Jose A Lam medical scheduler, on 12/23/2022 at 12:45 PM EST. IJesús PA-C, have personally reviewed and agree with the information entered by the scribe. Coding Level of Care Code New Pt Level 3 (24453) Diagnoses Closed nondisplaced fracture of shaft of fifth metacarpal bone of left hand, initial encounter S62.357A Encounter type: initial encounter Fracture type: closed Metacarpal location: shaft Fracture alignment: nondisplaced Laterality: left CPT Codes Casting - CPT: 34978-Otgh/Wrist Cast Application ([id number]) Fracture Care - Fracture Billing Code: Fracture Billing Code ([id number])
== END 2022-12-23 13:45 | disposition home or self-care (01) ==
PROVIDERS: PCP Internal Medicine; Visit Provider Physician Assistant
DX: S62.357A Nondisplaced fracture of shaft of fifth metacarpal bone, left hand, initial encounter for closed fracture (principal); W01.0XXA Fall on same level from slipping, tripping and stumbling without subsequent striking against object, initial encounter
CPT/HCPCS: 26600; 99203

== ENCOUNTER 2022-12-23 15:58 | Outpatient (REF) | payer OTHER, SELFPAY ==
--- NOTE | ~2022-12-23 | XR_ITS ---
EXAMINATION: XR HAND, LEFT CLINICAL INFORMATION: Pain. COMPARISON: Radiographs dated 12/14/2022. TECHNIQUE: PA, lateral, and oblique views of the left hand. FINDINGS: Bony alignment and mineralization are normal. Previously seen mildly displaced oblique fracture lines of the proximal and distal left fifth metacarpal shaft are redemonstrated. There is very mild displacement. No new fracture or dislocation is seen. The proximal and distal carpal rows are intact. There is no abnormal bone erosion. No focal soft tissue swelling, gas or foreign body is seen. XR/XR hand LT min 3V IMPRESSION: There is stable alignment of a very mildly displaced oblique fractures of the proximal and distal left fifth metacarpal shaft. No new callus formation is seen.
== END 2022-12-23 15:59 | disposition home or self-care (01) ==
LOC: HO.HOSX 15:58
PROVIDERS: Visit Provider Physician Assistant
DX: S62.357A Nondisplaced fracture of shaft of fifth metacarpal bone, left hand, initial encounter for closed fracture (principal)
CPT/HCPCS: 26600; 73130; 99202

== ENCOUNTER 2022-12-31 10:17 | Outpatient (AMB) | payer OTHER, SELFPAY ==
[2022-12-31 10:28] VITALS: BMI 30.4
--- NOTE | 2022-12-31 10:28 | A.OFFVIS_ITS ---
Intake Vital Signs 12/31/22 10:28 Height 5 ft 4 in Weight 177 lb BMI 30.4 Intake Visit Reasons: OV- Left hand fx-xr in cast Intake Note: Ritu gonzales 32 year old female presents today for follow up of left fifth metacarpal bone fracture. Xray updated with cast on. Patient reports continued pain, with a pain level is 9 out of 9. States pain with moving of fingers. Allergies No Known Allergies Allergy (Mild, Verified 12/31/22 10:32) UNKNOWN HPI OV- Left hand fx-xr in cast HPI Details 32-year-old female who returns to the [facility] today for a follow-up of left 5th metacarpal fracture. She continues to have pain and rates the pain as 9 on the scale of 0-10. She states her pain comes with moving of her fingers. 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 There are no areas of concern. Sensation and cap refill is intact. Results Reviewed Results Reviewed: X-rays of the left hand obtained in the office today through the cast show stable fracture alignment with no sign of displacement. Assessment & Plan Assessment & Plan (1) Fracture of fifth metacarpal bone: Code(s): S62.308A - Unspecified fracture of other metacarpal bone, initial encounter for closed fracture Qualifiers: Encounter type: subsequent encounter Fracture type: closed Metacarpal location: shaft Fracture alignment: nondisplaced Laterality: left Plan She will remain in the cast. She will avoid any type of lifting, pushing, pulling or carrying greater than a cellphone. She will see me back in 3-4 weeks with cast off and new x-rays. If everything appears to be in the same position and there is evidence of healing, we will transition her to a removable splint. Orders: Orders 2 XR hand LT min 3V Today M79.642 - Pain in left hand Patient Instructions: Scribed for Jesús Landis PA-C, by Jose A Lam director of medical review, on 12/31/2022 at 10:15 AM TA. Jesús Bella PA-C, have personally reviewed and agree with the information entered by the scribe. Coding Level of Care Code Global (43310) Diagnoses Fracture of fifth metacarpal bone S62.308A Encounter type: subsequent encounter Fracture type: closed Metacarpal location: shaft Fracture alignment: nondisplaced Laterality: left
== END 2022-12-31 11:06 | disposition home or self-care (01) ==
PROVIDERS: PCP Internal Medicine; Visit Provider Physician Assistant
DX: S62.308A Unspecified fracture of other metacarpal bone, initial encounter for closed fracture (principal)
CPT/HCPCS: 99024

== ENCOUNTER 2022-12-31 16:02 | Outpatient (REF) | payer OTHER, SELFPAY ==
--- NOTE | ~2022-12-31 | XR_ITS ---
EXAMINATION: XR HAND, LEFT CLINICAL INFORMATION: Pain in left hand, COMPARISON: 12/23/2022 TECHNIQUE: PA, lateral, and oblique views of the left hand. FINDINGS: Evaluation of previously identified mildly displaced oblique fracture of the fifth metacarpal with proximal and distal shaft fracture lines is limited due to overlying cast. Fracture lines are still visible. There is slight overriding of fracture fragments on the obliqued lateral view. XR/XR hand LT min 3V IMPRESSION: Slightly overriding, mildly displaced oblique fracture of the fifth metacarpal difficult to fully evaluate due to overlying cast.
== END 2022-12-31 16:03 | disposition home or self-care (01) ==
LOC: HO.HOSX 16:02
PROVIDERS: Visit Provider Physician Assistant
DX: S62.307D Unspecified fracture of fifth metacarpal bone, left hand, subsequent encounter for fracture with routine healing (principal); X58.XXXD Exposure to other specified factors, subsequent encounter
CPT/HCPCS: 73130

== ENCOUNTER 2023-01-27 10:32 | Outpatient (AMB) | payer OTHER, SELFPAY ==
--- NOTE | 2023-01-27 11:04 | A.OFFVIS_ITS ---
Intake Vital Signs 01/27/23 11:07 Height 5 ft 4 in Weight 175 lb BMI 30.0 Intake Visit Reasons: ov- left 5th metacarpal fx-cast off with xrays Intake Note: Ritu a 32 year old female presents today for follow up of left fifth metacarpal bone fracture. Xray updated and cast removed. States she h as pa in and stiffness in her 4th and 5th digit. DOI 12/14/22 Allergies No Known Allergies Allergy (Mild, Verified 01/27/23 11:09) UNKNOWN HPI ov- left 5th metacarpal fx-cast off with xrays HPI Details Ritu is a 32 year old right hand dominant woman who presents for a f ollow-up of her left 5th metacarpal fracture, after a fall down stairs, DOI: 12/14/22. This has been managed non-operatively, in a cast, by MARIA DE JESUS Espinosa. She complains of pain when moving her wrist or small finger now that she is out of her cast. She says she is a regular Marijuana smoker, on average twice daily. She says she is currently out of work as she cares for her 10 year old son, who has some behavioral issues. She reports having to restrain him at times when he is aggressive. [facility] Medical History Vaginal discharge Social History Patient Tobacco Use Status: Never used Tobacco Current occupational status: employed Current occupation: [employer], right hand dominant Review of Systems Const All systems reviewed & are unremarkable except as noted in HPI and below Physical Exam Vital Signs: BMI result Body Mass Index 30.0 Const General: cooperative, healthy appearing and no acute distress Orientation/consciousness: patient oriented x3 HEENT Head: Yes normocephalic and Yes atraumatic Eyes EOM: EOMs intact bilaterally Resp Effort & Inspection: normal respiratory effort and able to speak in complete sentences Cardio Jugular venous distension: no JVD Skin General skin exam: turgor normal Rashes: no rashes Neuro General: patient oriented x3 Extrem Other: Evaluation of Left Upper Extremity: The patient is alert, oriented, and in no acute distress. However, she was tearful and very apprehensive about some of the discomfort she had when trying to move her fingers and her wrist after being in a cast. Neuro: Median, Ulnar, Radial nerves motor and sensory intact and sensation is normal to the tips of all digits Vascular: Cap refill brisk Her fracture was nontender to palpation. No swelling. Skin in good condition. No angular or rotational malalignment. Again very apprehensive and quickly tearful when I try to start assessing wrist and finger range of motion. Wrist range of motion was full pronation, and about 65 degrees of supination, 50 degrees of wrist flexion and about 45 degrees of wrist extension, again when tearful. We went over some exercises to show her how to work on range of motion. With regards to her fingers: She needed encouragement to try to bring all her fingers into extension and then to try to bring them to a fist. With encouragement I can get her to get her hands flat on the table. With encouragement I got her to bring all of the MCP joints to about 90 degrees of flexion including the small finger, but she was tearful. With encouragement I got her to bring her index middle and ring fingertips to just about her palm. She was then able to hold it there actively. With encouragement I got her to bring the small fingertips to only about 3 cm from her palm. I showed her range of motion exercises Radiographs: 3 views of the left hand were taken and viewed by me today in clinic. They show a left spiral oblique non-displaced 5th metacarpal shaft fracture, with satisfactory fracture alignment and some evidence of interval bony healing. Psych Appearance: grossly normal Affect: normal affect Attitude: cooperative Office Procedures Fracture Care Details: No fracture, manual therapy greater than 15 minutes [id number] Fracture Billing Code: Fracture Billing Code Assessment & Plan Assessment & Plan (1) Fracture of fifth metacarpal bone: Code(s): S62.308A - Unspecified fracture of other metacarpal bone, initial encounter for closed fracture Qualifiers: Encounter type: subsequent encounter Fracture alignment: nondisplaced Fracture type: closed Laterality: left Metacarpal location: shaft Plan Assessment & Plan: 1. Left 5th metacarpal spiral oblique shaft fracture, non -displaced From a fall, DOI: 12/14/22 This has been managed non-operatively. 2. Some mild hand and wrist stiffness My concern is that she so apprehensive in tearful about working on range of motion. We will need to follow this closely. I educated her about this condition She was fitted for a velcro wrist splint to wear with daily activity when out of the house. She should remove her splint when at home, for most of the day.. I discussed activity modification, she is to lift light weight objects only for the next few weeks. She has a 10 year old son with behavioral issues that she cares for at home, and occasionally has to restrain. I advised that this is something to be avoided while she is healing, and encouraged her to seek help with managing his behavior. We worked on range of motion exercises for more than 15 minutes today in clinic. She will work on gentle ROM exercises out of her splint, 20x daily for 10 seconds minimum I ordered OT hand therapy to work on ROM exercises. She admits to smoking marijuana 2x daily on average. I counselled her on the effects of smoking on bone healing and recommend she stop smoking while she is healing. She will follow up 2-3 weeks with PA for a ROM check, with X-rays 3V L hand attention 5th metacarpal. Scribed for Rebecca Tidwell MD by Chris Crowder, medical social worker, on 01/27/23 at 11:15 AM, EST. Orders: Orders XR hand LT min 3V Today M79.642 - Pain in left hand Coding Level of Care Code Global (18505) Diagnoses Fracture of fifth metacarpal bone S62.308A Encounter type: subsequent encounter Fracture alignment: nondisplaced Fracture type: closed Laterality: left Metacarpal location: shaft CPT Codes Fracture Care - Fracture Billing Code: Fracture Billing Code ([id number])
== END 2023-01-27 11:36 | disposition home or self-care (01) ==
PROVIDERS: PCP Internal Medicine; Visit Provider Orthopaedic Surgery
DX: S62.353A Nondisplaced fracture of shaft of third metacarpal bone, left hand, initial encounter for closed fracture (principal)
CPT/HCPCS: 97140; 99024

== ENCOUNTER 2023-01-27 11:03 | Outpatient (REF) | payer OTHER, SELFPAY ==
--- NOTE | ~2023-01-27 | XR_ITS ---
EXAMINATION: XR HAND, LEFT CLINICAL INFORMATION: Pain COMPARISON: 12/31/2022 TECHNIQUE: PA, lateral, and oblique views of the left hand. Patient is status post aorta FINDINGS: There is no interval change in appearance of undisplaced spiral fracture of the face metacarpal bone. Fracture line is still visualized. XR/XR hand LT min 3V IMPRESSION: No interval change
== END 2023-01-27 11:04 | disposition home or self-care (01) ==
LOC: HO.HOSX 11:03
PROVIDERS: Visit Provider Orthopaedic Surgery
DX: S62.307D Unspecified fracture of fifth metacarpal bone, left hand, subsequent encounter for fracture with routine healing (principal); M79.642 Pain in left hand; F12.90 Cannabis use, unspecified, uncomplicated; X58.XXXD Exposure to other specified factors, subsequent encounter
CPT/HCPCS: 73130; 97140; 99212

== ENCOUNTER 2023-02-18 09:27 | Outpatient (REF) | payer OTHER, SELFPAY | END 2023-02-18 09:28 | disposition home or self-care (01) | LOC: HO.HOSX 09:27 | PROVIDERS: Visit Provider Physician Assistant | DX: Z13.89 Encounter for screening for other disorder (principal) ==

== ENCOUNTER 2023-12-21 09:40 | Outpatient (AMB) | payer OTHER, SELFPAY ==
[2023-12-21 09:42] VITALS: BP 120/86; PULSE 86; O2SAT 97; BMI 30.6
--- NOTE | 2023-12-21 09:42 | MHC.PC.OV ---
Vital Signs 12/21/23 09:42 Height 5 ft 4 in Weight 178 lb BMI 30.6 BP 120/86 Blood Pressure Location Lt brachial Position Sitting Pulse 86 Pulse Source Pulse Oximeter Pulse Oximetry (%) 97 Oxygen Delivery Method Room Air Intake Visit Reasons: Establish care/vaginal discharge-menstrual pain Academic Hospitalist Required: No Allergies No Known Allergies Allergy (Mild, Verified 12/21/23 09:54) UNKNOWN Medication List - Last Reconciled 12/21/23 by Katheryn Medina PA-C hydroxyzine HCl 25 mg PO TID paroxetine HCl 30 mg PO DAILY Tobacco use date assessed: 12/21/23 Dental Screening Dental Screen Date: 12/21/23 Did you have a dental visit in the last 12 months?: No Did you have a dental problem in the last 6 months where you did not have access to dental care?: No HPI Establish care/vaginal discharge-menstrual pain HPI Details 33-year-old female coming to the office for the 1st time. Patient states she follows with Dr. Barba from [facility] for management of anxiety and depression. She does mentioned her anxiety and depression can sometimes worsen due to family stress. Today she has concerns of right shoulder and arm pain which has been persistent for the last year and worsens around menses and improves with marijuana use. She has weakness in the shoulder and often has to lift her son and restrain him which she believes is likely responsible for the pain. She also mentions she has been having intermittent whole-body hive reactions for the last 2 weeks with no identifiable trigger. She has no new soaps, lotions, detergents, foods, or pets in the house. She describes the rash is itchy and will occasionally have shortness of breath without anaphylaxis. She also mentions having some degree of stress incontinence mainly with yelling. 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 1. Little interest or pleasure in doing things: nearly every day 2. Feeling down, depressed, or hopeless: nearly every day 3. Trouble falling or staying asleep, or sleeping too much: nearly every day 4. Feeling tired or having little energy: nearly every day 5. Poor appetite or overeating: nearly every day 6. Feeling bad about yourself - or that you are a failure or have let yourself or your family down: several days 7. Trouble concentrating on things, such as reading the newspaper or watching television: nearly every day 8. Moving or speaking so slowly that other people could have noticed. Or the opposite - being so fidgety or restless that you have been moving around a lot more than usual: nearly every day 9. Thoughts that you would be better off or of hurting yourself in some way: not at all Total score: 22 Depression Screening Interpretation: Positive Depression Screening Follow-up: Existing condition and In treatment Depression Screening Done: Yes [id number] - PHQ-9 Billing: Yes Source: Developed by Drs. Ramon Florez, Reyna Caballero, Miles Robert and colleagues, with an educational jose from [employer]. Thrive Questionnaire Date Thrive assessed: 12/21/23 I am a: Patient What is your living situation today?: I have a steady place to live Within the past 12 months, did the food you bought not last and you didn't have the money to get more?: Often true Within the past 12 months, did you worry whether your food would run out before you got money to buy more?: Often true Do you have trouble paying for medicines?: Yes Do you have trouble getting transportation to medical appointments?: No Do you have trouble paying your heating and electricity bill?: Yes Do you have trouble taking care of your child, family member or friend?: No Do you have trouble with day-to-day activities such as bathing, preparing meals, shopping, managing finances, etc.?: No Are you currently unemployed and looking for a job?: No Are you interested in more education?: Yes Please select the resources that you would like help with: Food, Utilities and Education Currently or been in a relationship where the following occur: No concerns reported THRIVE Score: 3 AUDIT C Alcohol Use Questionnaire (AUDIT-C) 1. How often do you have a drink containing alcohol?: Monthly or less 2. How many drinks containing alcohol do you have on a typical day when you are drinking?: 1 or 2 3. How often do you have six or more drinks on one occasion?: Never Total Score: 1 WILLIAM-7 AMB Questionnaire WILLIAM-7 Date WILLIAM - 7 assessed: 12/21/23 Feeling nervous, anxious, or on edge: 3 = Nearly every day Not being able to stop or control worryin = Several days Worrying too much about different things: 3 = Nearly every day Trouble relaxin = Nearly every day Being so restless that it is hard to sit still: 3 = Nearly every day Becoming easily annoyed or irritable: 3 = Nearly every day Feeling afraid as if something awful might happen: 1 = Several days Total WILLIAM-7 score (0-4 normal; 5-9 mild; 10-14 moderate; 15-21 severe): 17 Source: Developed by Drs. Ramon Florez, Reyna Caballero, Miles Robert and colleagues, with an educational jose from [employer]. WILLIAM-7 Assessment Billing WILLIAM-7 Assessment Tool: WILLIAM-7 Assessment 19572 Review of Systems Const Denies body aches, Denies fatigue, Denies fever(s), Denies frequent falls and Denies weakness Eyes Reports no additional complaints and Denies change in vision ENT Reports no additional complaints and Denies dizziness Card Denies chest pain, Denies leg edema, Denies lightheadedness and Reports dyspnea (With hives) Resp Reports dyspnea (With hives) GI Denies dyspepsia, Denies diarrhea, Denies nausea and Denies vomiting Details: Loss of urine with jumping and yelling Denies urinary frequency, Denies dysuria, Denies urinary hesitancy and Denies urinary urgency Musc Details: Right shoulder pain Denies back pain and Denies myalgias Skin/Breast Reports as per HPI Neuro Denies dizziness, Denies frequent falls and Denies weakness Psych Reports no additional complaints Endo Denies fatigue Physical exam (Primary Care) Vital Signs: Oxygen Delivery Method Room Air 12/21/23 09:42 Tobacco/Smoking Status: Tobacco use Status Patient Tobacco Use Status Never used Tobacco 12/23/22 13:00 Depression Screening Interpretation: Positive Depression Screening Follow-up: Existing condition and In treatment Currently or been in a relationship where the following occur: No concerns reported Const General: cooperative, healthy appearing, comfortable and no acute distress Orientation/consciousness: patient oriented x3 HENMT Head: Yes normocephalic Ears: hearing grossly normal bilaterally General nose exam: Normal external nose present Eyes General: appearance normal, both eyes and all related structures Conjunctivae: conjunctivae normal Neck Neck: Yes full ROM and Yes no lymphadenopathy Resp Effort & Inspection: normal respiratory effort Auscultation: clear to auscultation bilaterally, no crackles, no rales, no rhonchi and no wheezes Cardio Rate: regular rate Rhythm: regular rhythm GI Other: No pain to palpation of suprapubic area General: Yes no CVA tenderness Back/Spine/Pelvis Back: no CVA tenderness Skin Other: No evidence of hives or dermatitis on exam General skin exam: no rashes or lesions noted Neuro General: patient oriented x3 Gait exam (Neuro): Normal gait present Extrem Other: Pain to palpation over trapezius muscle and glenohumeral joint. Pain with internal rotation and extension of the right shoulder Intact sensation, strength, pulses in bilateral upper extremities. General: Yes normal to inspection, Yes full ROM and No edema Psych Affect: normal affect Attitude: cooperative Insight: Good insight present (Psych) Judgement: Good judgement present (Psych) Coding Level of Care Code New Pt Level 4 (08202) Diagnoses Right shoulder pain M25.511 Hives L50.9 Stress incontinence N39.3 Additional Codes WILLIAM-7 Assessment Billing - WILLIAM-7 Assessment Tool: WILLIAM-7 Assessment [id number] ([id number]) Assessment & Plan Assessment & Plan (1) Right shoulder pain: Code(s): M25.511 - Pain in right shoulder Category: Medical Plan: Ordered for shoulder x-ray and given muscle relaxer for nighttime pain. Advised patient not to use this medication while driving as it can cause drowsiness. Pending x-ray results can consider physical therapy and possible Orthopedics referral. (2) Hives: Code(s): L50.9 - Urticaria, unspecified Category: Medical Plan: Referral placed for allergy and immunology for further workup. Advised patient to start taking cetirizine daily and can use hydrocortisone cream as needed for itchiness. Also prescription sent for EpiPen as she does describe degree of shortness of breath with the hives on occasion. Discussed at length appropriate use of EpiPen and indications for use. (3) Stress incontinence: Code(s): N39.3 - Stress incontinence (female) (male) Category: Medical Plan: Patient has degree of stress incontinence worse with yelling. Discussed pelvic floor exercises and advised to trial conservative measures with exercising and incontinence liners. Can consider uro sleeve maker referral in the future. Plan Ordered for updated blood work and we will follow up in 1 month to discuss other concerns. This note was constructed using voice recognition software. While every effort has been made to ensure accuracy and technical services librarian, still areas may have been included sometimes these areas may affect the content or meeting of the given symptoms. Total time spent caring for the patient today was 30 minutes. This includes time spent before the visit reviewing the chart, time spent during the visit, and time spent after the visit and documentation. Orders: Orders Comprehensive Met. Panel Today Z.00 - Encounter for general adult medical examination without abnormal findings TSH reflex Free T4 Today Z00.00 - Encounter for general adult medical examination without abnormal findings Vitamin D 25-OH (D2 and D3) Today Z00.00 - Encounter for general adult medical examination without abnormal findings Lipid Panel Today Z00.00 - Encounter for general adult medical examination without abnormal findings XR shoulder RT min 2V Today M25.511 - Pain in right shoulder Complete Blood Count Auto Diff Today Z00.00 - Encounter for general adult medical examination without abnormal findings Free T4 (Free Thyroxine) Today Z00.00 - Encounter for general adult medical examination without abnormal findings Hemoglobin A1c Today Z00.00 - Encounter for general adult medical examination without abnormal findings UA CC w/rflx Micro + Cult Today R35.89 - Other polyuria Vitamin B12 and Folate Today Z00.00 - Encounter for general adult medical examination without abnormal findings Referrals [employer] Referral Z00.00 - Encounter for general adult medical examination without abnormal findings Allergy & Immunology Referral L50.9 - Urticaria, unspecified Medications: New cyclobenzaprine 5 mg PO BEDTIME PRN 20 tabs 0RF muscle spasm epinephrine (EpiPen) for 2 doses 0.3 mg (0.3 mL) IM Q10M PRN 2 ea 0RF anaphylaxis cetirizine 10 mg PO DAILY 30 tabs 2RF albuterol sulfate 90 mcg/actuation 1 inh inhalation QID 6.7 grams 0RF
== END 2023-12-21 10:16 | disposition home or self-care (01) ==
PROVIDERS: PCP Physician Assistant
DX: M25.511 Pain in right shoulder (principal); L50.9 Urticaria, unspecified; N39.3 Stress incontinence (female) (male)

== ENCOUNTER 2023-12-21 09:40 | Outpatient (REF) | payer OTHER, SELFPAY ==
--- NOTE | ~2023-12-21 | XR_ITS ---
EXAMINATION: XR SHOULDER, RIGHT CLINICAL INFORMATION: Right shoulder pain. COMPARISON: None available. TECHNIQUE: AP external rotation, Grashey, scapular Y, and axillary views of the right shoulder. FINDINGS: The bones and soft tissues are normal. No fracture. Glenohumeral and acromioclavicular alignment is anatomic with normal joint space. No abnormal soft tissue calcifications. XR/XR shoulder RT min 2V IMPRESSION: Normal right shoulder. Electronically signed by: Santos Elizabeth MD 01/26/2024 10:01 AM TA
[2023-12-21 10:52] LABS: MANUAL DIFF FLAG NO
[2023-12-21 11:08] LABS: Basophils Absolute Auto 0.1 X10*3/uL (0.0-0.2); Basophils Percent Auto 0.8 % (0-2); Eosinophils Absolute Auto 0.5 X10*3/uL (0.0-0.4); Eosinophils Percent Auto 6.4 % (0-4); Hematocrit 40.5 % (37.0-47.0); Hemoglobin 13.6 g/dl (12.0-16.0); Imm Gran Abs Auto 0.03 X10*3/uL (0.00-0.03); Imm Gran Pct Auto 0.4 % (0.0-0.4); Lymphocytes Percent Auto 36.5 % (20-40); Mean Corpuscular HGB Conc 33.6 g/dl (31.0-35.0); Mean Corpuscular Hemoglobin 32.8 pg (27.0-33.0); Mean Corpuscular Volume 97.6 fL (80.0-98.0); Mean Platelet Volume 9.8 fL (9.4-12.3); Monocytes Absolute Auto 0.5 X10*3/uL (0.1-1.2); Monocytes Percent Auto 6.2 % (2-11); Neutrophils Absolute Auto 4.1 x10*3/uL (2.0-8.3); Neutrophils Percent Auto 49.7 % (45-73); Platelet Count 384 X10*3/uL (160-400); Red Blood Count 4.15 X10*6/uL (4.20-5.50); Red Cell Distribution Width 11.4 % (11.0-16.0); White Blood Count 8.3 X10*3/uL (4.8-10.8)
[2023-12-21 11:24] LABS: Estimated Average Glucose 105 mg/dL; Hemoglobin A1C 145.2972 umol/L; Hemoglobin A1c % 5.3 % (<6.0); Total Hemoglobin (HGBA1C) 4158.9136 umol/L
[2023-12-21 11:34] LABS: Alanine Aminotransferase 13 U/L (0-31); Albumin Level 4.4 g/dL (3.5-5.0); Alkaline Phosphatase 62 U/L (39-117); Anion Gap 9 (12-20); Aspartate Amino Transferase 20 U/L (5-31); Bilirubin Total 0.3 mg/dL (0.0-1.0); Blood Urea Nitrogen 14 mg/dL (9-16); Calcium 9.3 mg/dL (8.4-10.2); Carbon Dioxide 26 mmol/L (22-29); Chloride 108 mmol/L (96-108); Cholesterol 104 mg/dL (<200); Estimated Glomerular Filt Rate > 60; Glucose Random 91 mg/dL (60-115); HDL Cholesterol 44 mg/dL (>40); LDL Cholesterol Calculated 54 mg/dL (<100); Potassium 4.2 mmol/L (3.3-5.1); Sodium 139 mmol/L (135-145); Total Protein 7.9 g/dL (6.5-8.0); Triglycerides 33 mg/dL (<150)
[2023-12-21 11:50] LABS: Free T4 (Free Thyroxine) 0.89 ng/dL (0.71-1.85)
[2023-12-21 12:24] LABS: Appearance Urine Clear; Color Urine Yellow; Glucose Urine UA Negative (Negative); Leukocyte Esterase Urine Negative (Negative); Nitrite Urine Negative (Negative); PH 5.5 (5.0-9.0); Specific Gravity - Urine 1.025 (1.005-1.025); Urine Blood Negative (Negative); Urine Ketones Negative (Negative); Urine Protein Negative (Neg-Trace)
[2023-12-21 13:37] LABS: Folate 7.2 ng/mL (> or = 4.0); Vitamin B12 500 pg/mL (200-900)
[2023-12-27 15:19] LABS: Vitamin D 25-OH, D2 <4 ng/mL; Vitamin D 25-OH, D3 20 ng/mL; Vitamin D 25-OH, Total 20 ng/mL (30-100)
== END 2023-12-21 09:41 | disposition home or self-care (01) ==
LOC: HO.XRAY 09:40
PROVIDERS: PCP Physician Assistant
DX: M25.511 Pain in right shoulder (principal); L50.9 Urticaria, unspecified; N39.3 Stress incontinence (female) (male); F41.9 Anxiety disorder, unspecified; F32.A Depression, unspecified; Z00.00 Encounter for general adult medical examination without abnormal findings; R35.89 Other polyuria
CPT/HCPCS: 36415; 73030; 80053; 80061; 81003; 82306; 82607; 82746; 83036; 84439; 84443; 85025; 96127; 99202

== ENCOUNTER 2024-01-05 14:48 | Outpatient (REF) | payer OTHER, SELFPAY ==
[2024-01-06 08:32] LABS: Syphilis Screen Nonreactive (Nonreactive)
[2024-01-06 08:43] LABS: HBc Num1 0.11 S/CO (0.00-0.79); HIV AB/AG Nonreactive (Nonreactive); HIV Num 1 0.06 S/CO (0.00-0.99); Hepatitis B Core Antibody Nonreactive (Nonreactive); ~HepC Num1 2.04 S/CO (0.00-0.79); ~Hepatitis C Antibody Reactive (Nonreactive)
[2024-01-07 14:33] LABS: HCV Log PCR <1.18 NOT DETECTED Log IU/mL (NOT DETECTED); HepC Viral Load <15 NOT DETECTED IU/mL (NOT DETECTED)
== END 2024-01-05 14:49 | disposition home or self-care (01) ==
LOC: HO.LAB 14:48
PROVIDERS: Visit Provider Advanced Practice Midwife
DX: Z20.2 Contact with and (suspected) exposure to infections with a predominantly sexual mode of transmission (principal); Z01.419 Encounter for gynecological examination (general) (routine) without abnormal findings; N92.1 Excessive and frequent menstruation with irregular cycle; N94.6 Dysmenorrhea, unspecified; Z98.51 Tubal ligation status
CPT/HCPCS: 36415; 81025; 86704; 86780; 86803; 87389; 87522; 99385

== ENCOUNTER 2024-01-05 14:48 | Outpatient (AMB) | payer OTHER, SELFPAY ==
[2024-01-05 15:00] VITALS: BP 94/62; BMI 31.1
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
== END 2024-01-05 15:57 | disposition home or self-care (01) ==
PROVIDERS: Visit Provider Advanced Practice Midwife
DX: N92.1 Excessive and frequent menstruation with irregular cycle (principal); Z01.419 Encounter for gynecological examination (general) (routine) without abnormal findings
CPT/HCPCS: 99385

== ENCOUNTER 2024-01-05 15:27 | Outpatient (REF) | payer OTHER, SELFPAY ==
[2024-01-05 18:32] LABS: CT PCR NOT DETECTED (Not Detect.); NG PCR NOT DETECTED (Not Detect.)
[2024-01-06 11:25] LABS: Bacterial Vaginosis PCR NEGATIVE (Negative); Candida Group PCR NOT DETECTED (Not Detect); Candida glab krusei PCR NOT DETECTED (Not Detect); Trichomonas vaginalis PCR NOT DETECTED (Not Detect)
[2024-01-10 14:47] LABS: HPV mRNA E6/E7 Not Detected (Not Detected)
== END 2024-01-05 15:28 | disposition home or self-care (01) ==
LOC: HO.LNP 15:27
PROVIDERS: Visit Provider Advanced Practice Midwife
DX: N94.6 Dysmenorrhea, unspecified (principal); Z01.419 Encounter for gynecological examination (general) (routine) without abnormal findings
CPT/HCPCS: 0352U; 87491; 87591; 87624; 88175

== ENCOUNTER 2024-01-06 13:45 | Outpatient (REF) | payer OTHER, SELFPAY | END 2024-01-06 13:46 | disposition home or self-care (01) | LOC: HO.LNP 13:45 | PROVIDERS: Visit Provider Advanced Practice Midwife | DX: Z13.89 Encounter for screening for other disorder (principal) ==

== ENCOUNTER 2024-01-25 10:01 | Outpatient (AMB) | payer OTHER, SELFPAY ==
[2024-01-25 10:03] VITALS: BP 118/78; PULSE 67; O2SAT 97; BMI 32.1
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
== END 2024-01-25 10:40 | disposition home or self-care (01) ==
DX: L50.9 Urticaria, unspecified (principal); M25.511 Pain in right shoulder; N39.3 Stress incontinence (female) (male); Z82.49 Family history of ischemic heart disease and other diseases of the circulatory system

== ENCOUNTER → 2024-01-25 10:01 | Outpatient (BNVA) | payer OTHER, SELFPAY | DX: L50.9 Urticaria, unspecified (principal); M25.511 Pain in right shoulder; N39.3 Stress incontinence (female) (male); Z82.49 Family history of ischemic heart disease and other diseases of the circulatory system | CPT/HCPCS: 99212 ==

== ENCOUNTER 2024-02-23 15:04 | Outpatient (REF) | payer OTHER, SELFPAY ==
--- NOTE | ~2024-02-23 | MR_ITS ---
EXAMINATION: MRA HEAD WITHOUT AND WITH CONTRAST CLINICAL INFORMATION: Headache. Family history of cardiovascular disease. COMPARISON: None available. TECHNIQUE: Routine MRA of the head once performed. Routine 3D [id number] of the head was performed. Post contrast MRA of the head without and following the administration of 8.5 mL of Gadavist intravenous contrast. 3D postprocessing including acquisition of multiplanar MIP reformats are obtained at the technologist workstation and utilized for image interpretation. Stenoses are assessed in accordance with NASCET criteria unless otherwise indicated. FINDINGS: Normal flow-related signal within the anterior circulation without evidence of focal stenosis or occlusion of the intradural internal carotid, middle cerebral, or anterior cerebral arteries. Normal variant hypoplastic A1 segment of the right KM. Left dominant vertebral artery. The vertebrobasilar system is mildly hypoplastic in the setting of origins of the bilateral posterior cerebral arteries. Robust flow-related signal across the posterior communicating arteries bilaterally. Otherwise, normal flow-related signal within the posterior circulation without evidence of focal stenosis or occlusion of the intradural vertebral, basilar, superior cerebellar, or posterior cerebral arteries. There is a 1 cm nidus of irregular small vessels in the right occipital lobe that appears to largely be fed by the right posterior cerebral artery. No demonstrated intradural aneurysms. MR/MR angio head wo/w con IMPRESSION: 1. 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 2. The vertebrobasilar system is mildly hypoplastic in the setting of origins of the bilateral posterior cerebral arteries. 3. MRA of the head without evidence of flow-limiting stenosis or occlusion. Electronically signed by: Rosalino Lira DO 03/29/2024 11:36 AM EST
[2024-02-23] MEDS: gadobutroL 10 ML VIAL IVPUSH (16:08)
== END 2024-02-23 15:05 | disposition home or self-care (01) ==
LOC: HO.MRI 15:04
DX: Z13.89 Encounter for screening for other disorder (principal); Z82.49 Family history of ischemic heart disease and other diseases of the circulatory system
CPT/HCPCS: 70546; A9585

== ENCOUNTER 2024-08-14 14:53 | Outpatient (AMB) | payer OTHER, SELFPAY ==
[2024-08-14 14:55] VITALS: BP 124/80; PULSE 69; O2SAT 96; BMI 31.8
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
== END 2024-08-14 15:48 | disposition home or self-care (01) ==
LOC: HO.HMCH 14:54
DX: Z00.00 Encounter for general adult medical examination without abnormal findings (principal); R20.0 Anesthesia of skin; Q27.30 Arteriovenous malformation, site unspecified; N39.3 Stress incontinence (female) (male); R20.2 Paresthesia of skin; M25.512 Pain in left shoulder; M25.511 Pain in right shoulder; L50.9 Urticaria, unspecified; E66.811 Obesity, class 1; G25.81 Restless legs syndrome

== ENCOUNTER → 2024-08-14 14:53 | Outpatient (BNVA) | payer OTHER, SELFPAY | DX: Z00.00 Encounter for general adult medical examination without abnormal findings (principal); N39.3 Stress incontinence (female) (male); Q27.30 Arteriovenous malformation, site unspecified; R20.0 Anesthesia of skin; R20.2 Paresthesia of skin; M25.511 Pain in right shoulder; M25.512 Pain in left shoulder; L50.9 Urticaria, unspecified; G25.81 Restless legs syndrome; E66.811 Obesity, class 1; Z68.31 Body mass index [BMI] 31.0-31.9, adult | CPT/HCPCS: 99212; 99395 ==